=== PATIENT | male | born 2005 | race Two or more races ===

== ENCOUNTER 2023-02-19 13:39 | Outpatient (CLI) | payer OTHER | END 2023-02-19 13:43 | disposition home or self-care (01) | LOC: RAD 13:39 | DX: Z01.818 Encounter for other preprocedural examination (principal) ==

== ENCOUNTER 2023-02-27 07:25 | Outpatient (CLI) | payer OTHER | END 2023-02-27 07:32 | disposition home or self-care (01) | LOC: TOM 07:25 | PROVIDERS: ATTEND Otolaryngology | DX: R10.9 Unspecified abdominal pain (principal) ==

== ENCOUNTER 2025-05-20 01:01 | Emergency (ER) | payer OTHER ==
[~2025-05-20] VITALS: Ht 175.3 cm; Wt 131.5 kg
[2025-05-20] MEDS ORDERED: PROMETHAZINE HCL 50 MG/ML AMPUL IM STA (01:36)
[2025-05-20] MEDS ORDERED: FAMOTIDINE/PF 20 MG/2 ML VIAL IV PUSH STA (01:36)
[2025-05-20] MEDS ORDERED: 0.9 % SODIUM CHLORIDE 1,000 ML IV ONE (01:45)
[2025-05-20] MEDS ORDERED: PROMETHAZINE HCL 50 MG/ML AMPUL IM ONE (01:49)
[2025-05-20] MEDS ORDERED: ZOLOFT20 MG/1 ML PO (01:49)
[2025-05-20] MEDS ORDERED: FAMOTIDINE/PF 20 MG/2 ML VIAL ONE (01:49)
[2025-05-20] MEDS ORDERED: JARDIANCE10 MG PO (01:50)
[2025-05-20] MEDS ORDERED: METFORMIN HCL500 M3 PO (01:50)
[2025-05-20 02:11] LABS: BASO % 0.6 % (0.1-1.2); EOS # 0.27 (0.04-0.54); EOS % 1.1 % (0.7-7.0); LYMPH # 5.31 (1.18-3.74); LYMPH % 21.2 % (19.3-53.1); MEAN PLATELET VOLUME 10.50 fl (9.4-12.4); MONO # 2.50 (0.24-0.82); MONO % 10.0 % (4.7-12.5); NEUT # 16.56 (1.56-6.13); NEUT % 65.9 % (34.0-71.1); RED CELL DISTRIBUTION WIDTH 12.4 % (11.6-14.4)
[2025-05-20 02:47] LABS: INR 1.01
[2025-05-20 02:57] LABS: ALT/SGPT 109.0 U/L (12-78); AST/SGOT 77.0 U/L (15-37); BILIRUBIN TOTAL 0.54 mg/dL (0.3-1.2); BUN CREA RATIO 11.0 (7.0-25.0); CREATININE SERUM 1.17 mg/dL (0.70-1.30); GFR 78.69; GLOBULINA 3.4 G/DL (2.4-3.5); GLUCOSE FASTING 156.0 mg/dL (65-100); OSMOLALITY SERUM 288.0 MOSM/KG (275-295)
[2025-05-20 04:43] LABS: URINE APPEARANCE Turbid; URINE BILIRRUBIN Negative (NEGATIVE); URINE BLOOD Negative; URINE COLOR Yellow; URINE GLUCOSE Negative (NEGATIVE); URINE KETONE Negative (NEGATIVE); URINE LEUKOCYTE Negative; URINE NITRATE Negative; URINE PROTEIN Negative (NEGATIVE); URINE UROBILINOGEN 1.0 E.U./dl
[2025-05-20 04:47] LABS: URINE BACTERIA 8.3 uL (0.0-1933); URINE RBC 2.7 uL (0.0-20.8)
[2025-05-20 04:49] LABS: URINE CAST 0.00 uL (0.0-1.40); URINE EPITHELIAL CELLS 0.6 uL (0.0-38.8); URINE WBC 0.3 uL (0.0-23.2)
[2025-05-20 07:14] LABS: BASO % 0.5 % (0.1-1.2); EOS # 0.12 (0.04-0.54); EOS % 0.7 % (0.7-7.0); LYMPH # 2.40 (1.18-3.74); LYMPH % 13.5 % (19.3-53.1); MEAN PLATELET VOLUME 10.40 fl (9.4-12.4); MONO # 1.71 (0.24-0.82); MONO % 9.6 % (4.7-12.5); NEUT # 13.33 (1.56-6.13); NEUT % 74.6 % (34.0-71.1); RED CELL DISTRIBUTION WIDTH 12.5 % (11.6-14.4)
[2025-05-20] MEDS ORDERED: PEPCID40 MG PO (08:09)
[2025-05-20] MEDS ORDERED: ZOFRAN8 MG PO (08:09)
== END 2025-05-20 14:38 ==
LOC: ER 01:01
PROVIDERS: General Practice
DX: K21.9 Gastro-esophageal reflux disease without esophagitis (principal); R07.89 Other chest pain; E11.9 Type 2 diabetes mellitus without complications; Z79.84 Long term (current) use of oral hypoglycemic drugs